=== PATIENT | female | born 1955 | race Caucasian/White ===

== ENCOUNTER 2016-04-07 14:13 | Outpatient (RCR) | payer MEDICARE, MEDICAID ==
--- OUTSIDE RECORDS SUMMARY | 2016-01-20 16:02 | XMS REPORT | Continuity of Care Document ---
Author Author [facility] Organization [facility] Address Unknown Phone Unavailable Care Team Providers Care Loader Helper Sorting Yard Name Role Phone PCP Unavailable Source Comments Some departments are not documenting in the electronic medical record. If you do not see the information that you expected, contact Release of Information in the Health Information Management department at [phone] for further assistance in locating additional records.[facility] Active Allergies and Adverse Reactions No Known Allergies Current Medications Prescription Sig. Disp. Refills Start End Date Status Date MULTIVITAMIN PO Take by mouth. Active CALCIUM CARBONATE/VITAMIN Take by mouth. Active D2 (CALCIUM + VITAMIN D PO) Active Problems Not on file Social History Tobacco Use Types Packs/Day Years Used Date Current Every Day Smoker Cigarettes 0.5 20 Last Filed Vital Signs Vital Sign Reading Time Taken Blood Pressure 124/80 02/04/2011 1:43 PM CDT Pulse 94 02/04/2011 1:43 PM CDT Temperature 36.7 C (98.1 F) 02/04/2011 1:43 PM CDT Respiratory Rate 18 02/04/2011 1:43 PM CDT Height 1.626 m (5' 4") 02/04/2011 1:43 PM CDT Weight 81.647 kg (180 lb) 02/04/2011 1:43 PM CDT Body Mass Index 30.88 02/04/2011 1:43 PM CDT Oxygen Saturation - - Plan of Care Health Maintenance Due Date Last Done Comments Physical (Comprehensive) 1964 Exam Pertussis Vaccine 1968 Tetanus Vaccine 1974 Cervical Cancer Screening 1978 Breast Cancer Screening 1997 Colorectal Cancer 01/01/2008 Screening Influenza Vaccine 12/05/2015 Results from Last 3 Months Not on file
[~2016-04-07 14:13] MED LIST: AZIT-21 PO; CALC-794 PO; CPR500T PO; DEXL30CA2 PO; ESOM10SU PO; EXEM25TA4 PO; HYDR-2890 PO; LETR2.5T4 PO; MULT-608; PANT40TA2 PO; PNT40TEC PO; SUCR1TAB23 PO; SUCR1TAB36 PO; TRAM-21 PO
== END 2016-04-19 | disposition home or self-care (01) ==
LOC: ONC 14:13
PROVIDERS: ATTEND Internal Medicine Hematology & Oncology
DX: C50.911 Malignant neoplasm of unspecified site of right female breast (principal); C77.3 Secondary and unspecified malignant neoplasm of axilla and upper limb lymph nodes; Z90.10 Acquired absence of unspecified breast and nipple; Z17.0 Estrogen receptor positive status [ER+]; Z92.3 Personal history of irradiation; Z92.21 Personal history of antineoplastic chemotherapy; Z45.2 Encounter for adjustment and management of vascular access device
CPT/HCPCS: 96523

== ENCOUNTER 2016-05-13 16:19 | Outpatient (RCR) | payer MEDICARE, MEDICAID ==
--- OUTSIDE RECORDS SUMMARY | 2016-05-13 16:23 | XMS REPORT | Continuity of Care Document ---
Author Author [facility] Organization [facility] Address Unknown Phone Unavailable Care Team Providers Care Derrick Boat Captain Name Role Phone PCP Unavailable Source Comments Some departments are not documenting in the electronic medical record. If you do not see the information that you expected, contact Release of Information in the Health Information Management department at [phone] for further assistance in locating additional records.[facility] Active Allergies and Adverse Reactions [...]
== END 2016-08-11 | disposition home or self-care (01) ==
LOC: ONC 16:19
PROVIDERS: ATTEND Internal Medicine Hematology & Oncology
DX: C50.911 Malignant neoplasm of unspecified site of right female breast (principal); C77.3 Secondary and unspecified malignant neoplasm of axilla and upper limb lymph nodes; Z90.10 Acquired absence of unspecified breast and nipple; Z17.0 Estrogen receptor positive status [ER+]; Z92.3 Personal history of irradiation; Z92.21 Personal history of antineoplastic chemotherapy; Z45.2 Encounter for adjustment and management of vascular access device
CPT/HCPCS: 96523

== ENCOUNTER 2016-12-02 11:41 | Outpatient (RCR) | payer MEDICARE, MEDICAID ==
[2016-10-19 10:16] LABS: BASOPHILS % (AUTO) 0 % (0-10); EOSINOPHILS # (AUTO) 0.1 10^3/uL (0.0-0.3); EOSINOPHILS % (AUTO) 2 % (0-10); LYMPHOCYTES # (AUTO) 1.3 X 10^3 (1.0-4.0); LYMPHOCYTES % (AUTO) 26 % (12-44); MEAN CORPUSCULAR HEMOGLOBIN 30 PG (25-34); MEAN CORPUSCULAR HGB CONC 34 G/DL (32-36); MEAN CORPUSCULAR VOLUME 88 FL (80-99); MEAN PLATELET VOLUME 8.8 FL (7.4-10.4); MONOCYTES # (AUTO) 0.4 X 10^3 (0.0-1.0); MONOCYTES % (AUTO) 8 % (0-12); NEUTROPHILS # (AUTO) 3.2 X 10^3 (1.8-7.8); NEUTROPHILS % (AUTO) 64 % (42-75); PLATELET COUNT 264 10^3/uL (130-400); RED BLOOD COUNT 4.53 10^6/uL (4.35-5.85); RED CELL DISTRIBUTION WIDTH 12.7 % (10.0-14.5); WHITE BLOOD COUNT 5.1 10^3/uL (4.3-11.0)
[2016-10-19 10:41] LABS: ALANINE AMINOTRANSFERASE 17 U/L (0-55); ALBUMIN 4.1 GM/DL (3.2-4.5); ANION GAP 9 MMOL/L (5-14); ASPARTATE AMINO TRANSFERASE 17 U/L (5-34); BILIRUBIN,TOTAL 0.7 MG/DL (0.1-1.0); BLOOD UREA NITROGEN 8 MG/DL (7-18); BUN/CREATININE RATIO 12; CALCIUM 8.8 MG/DL (8.5-10.1); CARBON DIOXIDE 23 MMOL/L (21-32); CHLORIDE 107 MMOL/L (98-107); CREATININE SERUM 0.69 MG/DL (0.60-1.30); GFR ESTIMATED > 60; GLUCOSE 105 MG/DL (70-105); POTASSIUM 3.8 MMOL/L (3.6-5.0); SODIUM 139 MMOL/L (135-145); TOTAL PROTEIN 6.5 GM/DL (6.4-8.2)
== END 2017-01-02 | disposition home or self-care (01) ==
LOC: ONC 11:41
PROVIDERS: ATTEND Internal Medicine Hematology & Oncology
DX: C50.911 Malignant neoplasm of unspecified site of right female breast (principal); C77.3 Secondary and unspecified malignant neoplasm of axilla and upper limb lymph nodes; Z90.10 Acquired absence of unspecified breast and nipple; Z17.0 Estrogen receptor positive status [ER+]; Z92.3 Personal history of irradiation; Z92.21 Personal history of antineoplastic chemotherapy; Z45.2 Encounter for adjustment and management of vascular access device
CPT/HCPCS: 36591; 80053; 85025; 96523

== ENCOUNTER 2017-04-06 14:29 | Outpatient (RCR) | payer MEDICARE, MEDICAID | END 2017-04-20 | disposition home or self-care (01) | LOC: ONC 14:29 | PROVIDERS: ATTEND Internal Medicine Hematology & Oncology | DX: C50.911 Malignant neoplasm of unspecified site of right female breast (principal); C77.3 Secondary and unspecified malignant neoplasm of axilla and upper limb lymph nodes; Z90.10 Acquired absence of unspecified breast and nipple; Z17.0 Estrogen receptor positive status [ER+]; Z92.3 Personal history of irradiation; Z92.21 Personal history of antineoplastic chemotherapy; Z45.2 Encounter for adjustment and management of vascular access device | CPT/HCPCS: 96523 ==

== ENCOUNTER 2017-06-24 09:18 | Outpatient (RCR) | payer MEDICARE, MEDICAID | END 2017-09-22 | disposition home or self-care (01) | LOC: ONC 09:18 | PROVIDERS: ATTEND Internal Medicine Hematology & Oncology | DX: Z08 Encounter for follow-up examination after completed treatment for malignant neoplasm (principal); Z85.3 Personal history of malignant neoplasm of breast; I89.0 Lymphedema, not elsewhere classified; K21.9 Gastro-esophageal reflux disease without esophagitis; K44.9 Diaphragmatic hernia without obstruction or gangrene; Z45.2 Encounter for adjustment and management of vascular access device; Z90.12 Acquired absence of left breast and nipple; Z92.21 Personal history of antineoplastic chemotherapy; Z92.3 Personal history of irradiation | CPT/HCPCS: 96523 ==

== ENCOUNTER 2017-09-27 12:57 | Outpatient (RCR) | payer MEDICARE, MEDICAID ==
[2017-10-18 09:35] LABS: BASOPHILS % (AUTO) 1 % (0-10); EOSINOPHILS # (AUTO) 0.1 10^3/uL (0.0-0.3); EOSINOPHILS % (AUTO) 1 % (0-10); HEMATOCRIT 39 % (35-52); HEMOGLOBIN 13.7 G/DL (11.5-16.0); LYMPHOCYTES # (AUTO) 1.4 X 10^3 (1.0-4.0); LYMPHOCYTES % (AUTO) 24 % (12-44); MEAN CORPUSCULAR HEMOGLOBIN 31 PG (25-34); MEAN CORPUSCULAR HGB CONC 35 G/DL (32-36); MEAN CORPUSCULAR VOLUME 89 FL (80-99); MEAN PLATELET VOLUME 8.8 FL (7.4-10.4); MONOCYTES # (AUTO) 0.4 X 10^3 (0.0-1.0); MONOCYTES % (AUTO) 7 % (0-12); NEUTROPHILS # (AUTO) 3.9 X 10^3 (1.8-7.8); NEUTROPHILS % (AUTO) 68 % (42-75); PLATELET COUNT 265 10^3/uL (130-400); RED BLOOD COUNT 4.45 10^6/uL (4.35-5.85); RED CELL DISTRIBUTION WIDTH 12.8 % (10.0-14.5); WHITE BLOOD COUNT 5.8 10^3/uL (4.3-11.0)
[2017-10-18 09:57] LABS: ALANINE AMINOTRANSFERASE 10 U/L (0-55); ALBUMIN 4.1 GM/DL (3.2-4.5); ALKALINE PHOSPHATASE 87 U/L (40-136); BILIRUBIN,TOTAL 0.4 MG/DL (0.1-1.0); BUN/CREATININE RATIO 15; CALCIUM 8.9 MG/DL (8.5-10.1); CARBON DIOXIDE 23 MMOL/L (21-32); CHLORIDE 109 MMOL/L (98-107); CREATININE SERUM 0.73 MG/DL (0.60-1.30); GFR ESTIMATED > 60; GLUCOSE 99 MG/DL (70-105); POTASSIUM 4.1 MMOL/L (3.6-5.0); SODIUM 139 MMOL/L (135-145); TOTAL PROTEIN 6.3 GM/DL (6.4-8.2)
== END 2017-10-18 09:18 | disposition home or self-care (01) ==
LOC: ONC 12:57
PROVIDERS: ATTEND Internal Medicine Hematology & Oncology
DX: Z08 Encounter for follow-up examination after completed treatment for malignant neoplasm (principal); Z85.3 Personal history of malignant neoplasm of breast; I89.0 Lymphedema, not elsewhere classified; K21.9 Gastro-esophageal reflux disease without esophagitis; K44.9 Diaphragmatic hernia without obstruction or gangrene; Z45.2 Encounter for adjustment and management of vascular access device; Z90.12 Acquired absence of left breast and nipple; Z92.21 Personal history of antineoplastic chemotherapy; Z92.3 Personal history of irradiation
CPT/HCPCS: 36415; 80053; 85025

== ENCOUNTER 2017-12-02 14:25 | Outpatient (RCR) | payer MEDICARE, MEDICAID | END 2018-01-16 | disposition home or self-care (01) | LOC: ONC 14:25 | PROVIDERS: ATTEND Internal Medicine Hematology & Oncology | DX: Z08 Encounter for follow-up examination after completed treatment for malignant neoplasm (principal); Z85.3 Personal history of malignant neoplasm of breast; I89.0 Lymphedema, not elsewhere classified; E55.9 Vitamin D deficiency, unspecified; M85.80 Other specified disorders of bone density and structure, unspecified site; K21.9 Gastro-esophageal reflux disease without esophagitis; K44.9 Diaphragmatic hernia without obstruction or gangrene; Z45.2 Encounter for adjustment and management of vascular access device; Z90.12 Acquired absence of left breast and nipple; Z92.21 Personal history of antineoplastic chemotherapy; Z92.3 Personal history of irradiation | CPT/HCPCS: 36591; 82306; 96523 ==

== ENCOUNTER 2018-03-03 14:35 | Outpatient (RCR) | payer MEDICARE, MEDICAID | END 2018-04-20 | disposition home or self-care (01) | LOC: ONC 14:35 | PROVIDERS: ATTEND Internal Medicine Hematology & Oncology | DX: Z45.2 Encounter for adjustment and management of vascular access device (principal); Z85.3 Personal history of malignant neoplasm of breast | CPT/HCPCS: 96523 ==

== ENCOUNTER 2018-06-29 11:52 | Outpatient (RCR) | payer MEDICARE, MEDICAID | END 2018-08-24 | disposition home or self-care (01) | LOC: ONC 11:52 | PROVIDERS: ATTEND Internal Medicine Hematology & Oncology | DX: Z08 Encounter for follow-up examination after completed treatment for malignant neoplasm (principal); Z85.3 Personal history of malignant neoplasm of breast; Z45.2 Encounter for adjustment and management of vascular access device | CPT/HCPCS: 96523 ==

== ENCOUNTER → 2018-07-06 | Outpatient (CLI) | payer MEDICARE, MEDICAID ==
[~2018-07-06] MED LIST changes: +BARIUM SUSPENSION 105% (LIQUID POLIBAR PLUS) 240 ML/DOSE PO ONE; +BARIUM SUSPENSION 60% (LIQUID EZ PAQUE) 240 ML DOSE PO ONE
--- NOTE | 2018-07-06 13:28 | Diagnostic Imaging Report ---
INDICATION: Difficulty swallowing. TECHNIQUE: The patient ingested effervescent crystals as well as thin and thick barium and imaging of the esophagus was performed. A total of 1 minute and 32 seconds of fluoroscopy was utilized. FINDINGS: The esophagus has a smooth contour. No mass or stricture is identified. No gastroesophageal reflux or hiatal hernia is demonstrated. IMPRESSION: Unremarkable esophagram. Dictated by: Dictated on workstation # [id number]
== END ==
LOC: RAD 10:11
PROVIDERS: ATTEND Surgery
DX: R13.10 Dysphagia, unspecified (principal)
CPT/HCPCS: 74220

== ENCOUNTER 2019-01-11 14:45 | Outpatient (RCR) | payer MEDICARE, MEDICAID ==
[2018-11-15 10:05] LABS: BASOPHILS % (AUTO) 1 % (0-10); EOSINOPHILS # (AUTO) 0.1 10^3/uL (0.0-0.3); EOSINOPHILS % (AUTO) 1 % (0-10); HEMATOCRIT 40 % (35-52); HEMOGLOBIN 13.4 G/DL (11.5-16.0); LYMPHOCYTES # (AUTO) 1.4 X 10^3 (1.0-4.0); LYMPHOCYTES % (AUTO) 22 % (12-44); MEAN CORPUSCULAR HEMOGLOBIN 30 PG (25-34); MEAN CORPUSCULAR HGB CONC 34 G/DL (32-36); MEAN CORPUSCULAR VOLUME 89 FL (80-99); MEAN PLATELET VOLUME 8.8 FL (7.4-10.4); MONOCYTES # (AUTO) 0.5 X 10^3 (0.0-1.0); MONOCYTES % (AUTO) 8 % (0-12); NEUTROPHILS # (AUTO) 4.4 X 10^3 (1.8-7.8); NEUTROPHILS % (AUTO) 68 % (42-75); PLATELET COUNT 263 10^3/uL (130-400); RED CELL DISTRIBUTION WIDTH 12.7 % (10.0-14.5); WHITE BLOOD COUNT 6.5 10^3/uL (4.3-11.0)
[2018-11-15 10:26] LABS: ALANINE AMINOTRANSFERASE 18 U/L (0-55); ALBUMIN 4.3 GM/DL (3.2-4.5); ALKALINE PHOSPHATASE 114 U/L (40-136); BILIRUBIN,TOTAL 0.7 MG/DL (0.1-1.0); BUN/CREATININE RATIO 17; CALCIUM 9.2 MG/DL (8.5-10.1); CARBON DIOXIDE 24 MMOL/L (21-32); CHLORIDE 107 MMOL/L (98-107); CREATININE SERUM 0.72 MG/DL (0.60-1.30); GFR ESTIMATED > 60; GLUCOSE 97 MG/DL (70-105); POTASSIUM 3.8 MMOL/L (3.6-5.0); SODIUM 141 MMOL/L (135-145); TOTAL PROTEIN 6.8 GM/DL (6.4-8.2)
[~2019-01-11 14:45] MED LIST changes: -BARIUM SUSPENSION 105% (LIQUID POLIBAR PLUS) 240 ML/DOSE PO ONE; -BARIUM SUSPENSION 60% (LIQUID EZ PAQUE) 240 ML DOSE PO ONE
== END 2019-02-13 | disposition home or self-care (01) ==
LOC: ONC 14:45
PROVIDERS: ATTEND Internal Medicine Hematology & Oncology
DX: Z08 Encounter for follow-up examination after completed treatment for malignant neoplasm (principal); Z85.3 Personal history of malignant neoplasm of breast
CPT/HCPCS: 36415; 80053; 82306; 85025; 96523

== ENCOUNTER 2019-03-23 14:29 | Outpatient (RCR) | payer MEDICARE, MEDICAID | END 2019-05-17 | disposition home or self-care (01) | LOC: ONC 14:29 | PROVIDERS: ATTEND Internal Medicine Hematology & Oncology | DX: Z08 Encounter for follow-up examination after completed treatment for malignant neoplasm (principal); Z45.2 Encounter for adjustment and management of vascular access device; Z85.3 Personal history of malignant neoplasm of breast | CPT/HCPCS: 96523 ==

== ENCOUNTER 2019-06-08 16:44 | Outpatient (RCR) | payer MEDICARE, MEDICAID | END 2019-09-06 | disposition home or self-care (01) | LOC: ONC 16:44 | PROVIDERS: ATTEND Internal Medicine Hematology & Oncology | DX: Z45.2 Encounter for adjustment and management of vascular access device (principal); Z08 Encounter for follow-up examination after completed treatment for malignant neoplasm; Z85.3 Personal history of malignant neoplasm of breast | CPT/HCPCS: 96523 ==

== ENCOUNTER 2019-11-28 09:08 | Outpatient (RCR) | payer MEDICARE, MEDICAID ==
[2019-11-28 09:32] LABS: BASOPHILS # (AUTO) 0.1 10^3/uL (0.0-0.1); BASOPHILS % (AUTO) 1 % (0-10); EOSINOPHILS # (AUTO) 0.1 10^3/uL (0.0-0.3); EOSINOPHILS % (AUTO) 2 % (0-10); HEMATOCRIT 40 % (35-52); HEMOGLOBIN 13.2 G/DL (11.5-16.0); LYMPHOCYTES # (AUTO) 1.4 X 10^3 (1.0-4.0); LYMPHOCYTES % (AUTO) 24 % (12-44); MEAN CORPUSCULAR HEMOGLOBIN 30 PG (25-34); MEAN CORPUSCULAR HGB CONC 33 G/DL (32-36); MEAN CORPUSCULAR VOLUME 90 FL (80-99); MEAN PLATELET VOLUME 8.8 FL (7.4-10.4); MONOCYTES # (AUTO) 0.4 X 10^3 (0.0-1.0); MONOCYTES % (AUTO) 7 % (0-12); NEUTROPHILS # (AUTO) 3.9 X 10^3 (1.8-7.8); NEUTROPHILS % (AUTO) 66 % (42-75); PLATELET COUNT 256 10^3/uL (130-400); WHITE BLOOD COUNT 5.9 10^3/uL (4.3-11.0)
[2019-11-28 09:53] LABS: ALANINE AMINOTRANSFERASE 14 U/L (0-55); ALBUMIN 4.1 GM/DL (3.2-4.5); ALKALINE PHOSPHATASE 89 U/L (40-136); BILIRUBIN,TOTAL 0.4 MG/DL (0.1-1.0); BUN/CREATININE RATIO 14; CALCIUM 8.4 MG/DL (8.5-10.1); CARBON DIOXIDE 22 MMOL/L (21-32); CHLORIDE 108 MMOL/L (98-107); CREATININE SERUM 0.77 MG/DL (0.60-1.30); GFR ESTIMATED > 60; GLUCOSE 125 MG/DL (70-105); POTASSIUM 3.9 MMOL/L (3.6-5.0); SODIUM 140 MMOL/L (135-145); TOTAL PROTEIN 6.6 GM/DL (6.4-8.2)
== END 2019-12-20 | disposition home or self-care (01) ==
LOC: ONC 09:08
PROVIDERS: ATTEND Internal Medicine Hematology & Oncology
DX: C50.919 Malignant neoplasm of unspecified site of unspecified female breast (principal); M85.80 Other specified disorders of bone density and structure, unspecified site; K21.9 Gastro-esophageal reflux disease without esophagitis; Z85.3 Personal history of malignant neoplasm of breast; Z45.2 Encounter for adjustment and management of vascular access device
CPT/HCPCS: 36591; 80053; 85025; 96523

== ENCOUNTER → 2019-12-26 | Outpatient (CLI) | payer MEDICARE, MEDICAID ==
[~2019-12-26] MED LIST changes: +CALC-654 PO; +CHOL200059 PO; +MV-M1TAB57 PO; +PANT40TA52 PO
--- NOTE | 2019-12-26 10:16 | Diagnostic Imaging Report ---
CLINICAL INDICATION: Patient with abdominal pain and history of breast cancer. EXAM: Right upper quadrant ultrasound. COMPARISON: None. FINDINGS: Patient body habitus and overlying bowel gas obscure portions of this exam. Portions of the pancreatic tail are obscured and unable to be visualized. Otherwise, the visualized portions of the pancreas are unremarkable. The visualized portions of the abdominal aorta and IVC are grossly unremarkable. The midportion of the abdominal aorta is obscured by overlying bowel gas. The liver has normal echogenicity and echotexture. The liver surface is smooth. The liver measures 17.4 cm. There is no liver mass seen. The main portal vein demonstrates hepatopetal flow. There is no intrahepatic or extrahepatic ductal dilation. The common bile duct measures 4 mm. The gallbladder is mild to moderately fluid filled and unremarkable. There is no stone or sludge. There is no significant gallbladder wall thickening. There is no pericholecystic fluid. There is no sonographic Mo sign. There is a roughly 2.4 cm x 2.3 cm x 2.2 cm heterogeneous partially exophytic appearing area involving the mid to upper aspect of the right kidney which demonstrates some Doppler flow. The remainder of the right kidney is unremarkable. There is no hydronephrosis. The right kidney measures 10.9 cm in craniocaudal dimension. There is no abdominal ascites. IMPRESSION: 1. There is a 2.4 cm heterogeneous partially exophytic mass-like lesion involving the mid to upper aspect of the left kidney which demonstrates some Doppler flow. A CT scan of the kidneys with and without IV contrast is suggested to better evaluate for neoplasm versus other abnormality. 2. Portions of the pancreas are obscured but unremarkable as visualized. 3. The gallbladder is unremarkable. Dictated by: Dictated on workstation # [id number]
== END ==
LOC: RAD 07:57
PROVIDERS: ATTEND Surgery
DX: N28.89 Other specified disorders of kidney and ureter (principal); R10.13 Epigastric pain; R19.4 Change in bowel habit
CPT/HCPCS: 76705

== ENCOUNTER 2019-12-28 05:38 | Outpatient (RCR) | payer MEDICARE, MEDICAID ==
[~2019-12-28] VITALS: Ht 167.7 cm; Wt 82.7 kg
== END 2019-12-28 09:40 | disposition home or self-care (01) ==
LOC: PREOP 05:38
PROVIDERS: ATTEND Surgery
DX: Z01.812 Encounter for preprocedural laboratory examination (principal); Z20.828 Contact with and (suspected) exposure to other viral communicable diseases
CPT/HCPCS: 87635

== ENCOUNTER → 2020-01-01 | Outpatient (CLI) | payer MEDICARE, MEDICAID ==
[~2020-01-01] MED LIST changes: +CATHETER FLUSH 10 ML SYR IV PRN
--- NOTE | 2020-01-01 13:08 | Diagnostic Imaging Report ---
Hepatobiliary scan with ejection fraction. INDICATION: Abdominal pain This study was performed following administration of 5.16 mCi of Choletec. One can of Ensure was also utilized for the ejection fraction calculation. There are no prior hepatobiliary scans available for comparison. The gallbladder ultrasound exam performed on 12/26/2019 failed to show any abnormality of the gallbladder. There was a 2.4 cm heterogeneous partially exophytic masslike lesion involving the left kidney. CT was recommended for further evaluation. On this exam there is delayed uptake of the radiotracer by the gallbladder. Normally the radiotracer is seen within the gallbladder by 30 minutes. On this exam however there is no clear evidence that accumulation reaches within the gallbladder until almost 50 minutes. This delayed uptake does suggest there may be an element of chronic cholecystitis present. There was extension of the radiotracer into the small bowel indicating the common bile duct is not obstructed. The ejection fraction had to be calculated manually due to small bowel activity. The ejection fraction is estimated 8% (normal greater than 35%). The reason for the diminished ejection fraction is not certain but the possibility of biliary dyskinesia should certainly be considered. IMPRESSION: 1. The delayed uptake of the radiotracer by the gallbladder does suggest there is an element of chronic cholecystitis present. The ejection fraction is also well below normal limits. 2. There is no evidence of obstruction of the common bile duct. Dictated by: Dictated on workstation # [id number]
== END ==
LOC: CARD 09:52
PROVIDERS: ATTEND Surgery
DX: R10.13 Epigastric pain (principal); R19.4 Change in bowel habit; Z20.828 Contact with and (suspected) exposure to other viral communicable diseases
CPT/HCPCS: 78227; A9537

== ENCOUNTER 2020-01-02 06:53 | Day surgery (SDC) | payer MEDICARE, MEDICAID ==
[~2020-01-02] VITALS: Ht 167.7 cm; Wt 82.7 kg
[~2020-01-02 06:53] MED LIST changes: -CATHETER FLUSH 10 ML SYR IV PRN
[2020-01-02] MEDS ORDERED: MIDAZOLAM 2 MG/2 ML (VERSED) VIAL ONE (07:03)
[2020-01-02] MEDS ORDERED: PROPOFOL INJECTION 50 ML IV ONE (07:03)
[2020-01-02] MEDS ORDERED: LACTATED RINGERS 1,000 ML IV ONE (07:08)
[2020-01-02] MEDS ORDERED: LACTATED RINGERS 1,000 ML IV STA (07:09)
[2020-01-02] MEDS ORDERED: HURRICAINE EXT TUBE (BENZOCAINE) XX PRN (07:15)
[2020-01-02 07:24] VITALS: BP 123/89
[2020-01-02] MEDS ORDERED: HURRICAINE EXT TUBE (BENZOCAINE) ONE (07:46)
--- NOTE | 2020-01-02 08:10 | Progress Note-Pre Operative ---
Pre-Operative Progress Note H&P Reviewed The H&P was reviewed, patient examined and no changes noted. Date Seen by Provider: Jan 02, 2020 Time Seen by Provider: 08:09 Date H&P Reviewed: Jan 02, 2020 Time H&P Reviewed: 08:09 Pre-Operative Diagnosis: epigastric abd pain, hx polyps, change in bowel habits KADEEM WILKS DO Jan 02, 2020 08:10
[2020-01-02] MEDS ORDERED: proPOfol 200 MG/20 ML (DIPRIVAN) VIAL IV ONE (08:30)
[2020-01-02 08:55] VITALS: BP 121/74
[2020-01-02 09:00] VITALS: BP_SYST 111; BP_SYST 123; BP_DIAS 78; BP_DIAS 91
--- NOTE | 2020-01-02 09:01 | Anesthesia-General Post-Op ---
MAC Patient Condition Mental Status/LOC: Same as Preop Cardiovascular: Satisfactory Nausea/Vomiting: Absent Respiratory: Satisfactory Pain: Controlled Complications: Absent Post Op Complications Complications None Follow Up Care/Instructions Patient Instructions None needed. Anesthesiology Discharge Order Discharge Order Patient is doing well, no complaints, stable vital signs, no apparent adverse anesthesia problems. No complications reported per nursing. CELESTE CRUMP CRNA Jan 02, 2020 09:01
--- NOTE | 2020-01-02 09:09 | Progress Note-Post Operative ---
Post-Operative Progess Note Surgeon (s)/Truck And Transport Mechanic (s) Surgeon KADEEM WILKS DO Truck And Transport Mechanic: na Pre-Operative Diagnosis epigastric abd pain, hx polyps, change in bowel habits Post-Operative Diagnosis hiatal hernia reflux esophagitis colon polyps Procedure & Operative Findings Date of Procedure 01/02/20 Procedure Performed/Findings EGD c biopsies colonoscopy c hot biopsy polypectomy x3, snare polypectomy x2 Anesthesia Type per BUTTON CUTTING MACHINE OPERATOR Estimated Blood Loss Estimated blood loss (mL): none Specimens/Packing Specimens Removed cecal polyp x1, ascending polyp x2, antral biopsy x1, GEJ biopsy x2, descending colon polyp x2 (snare), sigmoid polyp x2 (snare) KADEEM WILKS DO Jan 02, 2020 09:09
[2020-01-02] MEDS ORDERED: SUCR1TAB36 PO (09:13)
--- NOTE | 2020-01-02 09:13 | Discharge Inst-Simple/Standard ---
Discharge Inst-Standard Discharge Medications New, Converted or Re-Newed RX: Transmitted to Pharmacy Patient Instructions/Follow Up Plan of Care/Instructions/FU: 2 weeks Pat Activity as Tolerated: Yes Discharge Diet: Regular Diet KADEEM WILKS DO Jan 02, 2020 09:13
[2020-01-02 09:30] VITALS: BP 131/79
--- NOTE | 2020-01-02 09:31 | OPERATIVE REPORT ---
DATE OF SERVICE: 01/02/2020 PREOPERATIVE DIAGNOSES: Epigastric abdominal pain, history of polyps and change in bowel habits. POSTOPERATIVE DIAGNOSES: Hiatal hernia, reflux esophagitis and colon polyps. PROCEDURES PERFORMED: EGD with biopsies, colonoscopy with hot biopsy polypectomy x3 and snare polypectomy x2. SURGEON: Kadeem Stewart DO. ANESTHESIA: Per OFFSET PROOF PRESS OPERATOR. ESTIMATED BLOOD LOSS: None. COMPLICATIONS: None. SPECIMENS: Cecal polyp x1 and ascending colon polyp x2. Antral biopsy and GE junction biopsy x2, descending colon polyps x1 and sigmoid polyp x1. INDICATIONS FOR PROCEDURE: The patient is a 64-year-old female with recent epigastric abdominal pain and bloating symptoms. She is having slight change in bowel habits and she has a history of colon polyps. She understands the risks and benefits of the procedure and wished to proceed with the procedure. Consent was signed in the chart. DESCRIPTION OF PROCEDURE: The patient was taken to the endoscopy suite and placed in a left lateral recumbent position. Timeout was performed. Scope was inserted in the mouth, down the esophagus, stomach and into the duodenum without difficulty. No polyps, masses or ulcerations. Scope was slowly retracted back into the stomach, where it was further insufflated. No polyps, masses or ulcerations. Biopsy of the antrum was obtained. Scope was retroflexed noting a hiatal hernia and no other pathology. Scope was returned to its normal position, slowly withdrawn to the distal esophagus, which had changes of reflux esophagitis. Biopsy of the GE junction was obtained. Scope was then slowly retracted back noting no other pathology. Digital rectal exam was performed. No palpable polyps, masses or ulcerations. Scope was inserted in the rectum, advanced all the way to cecum with minimal difficulty. Prep was adequate. In the cecum, a larger polyp was present, which hot biopsy polypectomy was performed. Scope was then slowly retracted back and in the descending colon, there were two polyps, which hot biopsy polypectomy was performed. Scope was then continued slowly retracted back. No polyps, masses or ulcerations within the remainder of the ascending, transverse colon. In the descending colon, a larger polyp was present, which was snared pieces. This was obtained for specimen. Scope was then continuously retracted back. In the sigmoid colon, another polyp was present, which snare polypectomy was performed and obtained for specimen. No other polyps, masses or ulcerations. Scope was then slowly retracted back into the rectum, where it was also retroflexed noting no other pathology. Scope was returned to its normal position and slowly withdrawn until completely removed. The patient tolerated the procedure well without any complications. She was taken to the recovery room in a stable condition. RECOMMENDATIONS: The patient to continue on Protonix. We will add Carafate 1 gram four times a day. We will have her follow up in two weeks to discuss how symptoms are doing. The patient will need a repeat colonoscopy in one year due to larger polyp and multiple polyps. Job ID: [id number] DocumentID: [id number] Dictated Date: 01/02/2020 09:16:59 Cell Attendant Helper Date: 01/02/2020 09:30:34 Dictated By: KADEEM STEWART DO
[2020-01-02 09:49] VITALS: BP 131/79
== END 2020-01-02 09:48 | disposition home or self-care (01) ==
LOC: ENDO 06:53
PROVIDERS: ATTEND Surgery
DX: D12.0 Benign neoplasm of cecum (principal); D12.2 Benign neoplasm of ascending colon; D12.4 Benign neoplasm of descending colon; K51.40 Inflammatory polyps of colon without complications; K21.0 Gastro-esophageal reflux disease with esophagitis; K44.9 Diaphragmatic hernia without obstruction or gangrene; E55.9 Vitamin D deficiency, unspecified; M85.80 Other specified disorders of bone density and structure, unspecified site; G47.33 Obstructive sleep apnea (adult) (pediatric); F17.210 Nicotine dependence, cigarettes, uncomplicated; Z86.010 Personal history of colon polyps; Z85.3 Personal history of malignant neoplasm of breast; Z99.89 Dependence on other enabling machines and devices; Z90.13 Acquired absence of bilateral breasts and nipples

== ENCOUNTER → 2020-01-23 | Outpatient (CLI) | payer MEDICARE, MEDICAID ==
[~2020-01-23] MED LIST changes: +CATHETER FLUSH 10 ML SYR IV PRN; +HOLD METFORMIN - RECEIVED CONTRAST 20 ML VIAL IV SCH; +IOHEXOL 350 MG/ML 100 ML (OMNIPAQUE 350) VIAL IV ONE; +NS 100 ML (IVPB) BAG IV ONE
[2020-01-23 09:36] LABS: BUN/CREATININE RATIO 17; CREATININE SERUM 0.72 MG/DL (0.60-1.30); GFR ESTIMATED > 60
--- NOTE | 2020-01-23 10:57 | Diagnostic Imaging Report ---
PROCEDURE: CT of the abdomen with and without contrast and CT of the pelvis with contrast. TECHNIQUE: Precontrast acquisitions were acquired through the abdomen. Multiple contiguous axial images were obtained through the abdomen and pelvis after administration of intravenous contrast. Auto Exposure Controls were utilized during the CT exam to meet ALARA standards for radiation dose reduction. INDICATION: Left renal mass. COMPARISON: There are no prior CT abdomen/pelvis examinations available for comparison. The PET/CT exam performed on 05/09/2018 failed to show any sign of a renal mass. FINDINGS: On this exam, there is no evidence for a solid renal mass. Both kidneys do show uptake and excretion of the contrast and there is no sign of obstruction of either collecting system. There does appear to be a small 4.4 mm cyst in the left kidney. There is also a minute 1-2 mm nonobstructive calculus within the right kidney. The liver is prominent but unchanged when compared to the prior PET/CT exam. There is no focal mass involving the liver but there does appear to be a small 7.8 mm cyst in the left lobe of the liver. This appears to have been present on the prior PET/CT exam. The spleen is prominent but within normal limits. The pancreas, adrenals, gallbladder, aorta, and inferior vena cava show no sign of an acute abnormality. The stomach is not well-distended and consequently difficult to assess. There is no pelvic mass or free fluid collection evident. The uterus and urinary bladder are grossly unremarkable. The appendix is not particularly well visualized but there are no indirect signs of acute appendicitis. The bone windows are unremarkable for a fracture or destructive lesion. The lung bases are clear. IMPRESSION: 1. There is no evidence for a solid renal mass. There is no acute abnormality of either kidney either. 2. There is no acute abnormality of the abdomen or pelvis. 3. There is no sign of metastatic disease related to the patient's diagnosis of breast cancer either. Dictated by: Dictated on workstation # [id number]
== END ==
LOC: LAB FS 08:55
PROVIDERS: ATTEND Surgery
DX: N28.9 Disorder of kidney and ureter, unspecified (principal); C50.919 Malignant neoplasm of unspecified site of unspecified female breast
CPT/HCPCS: 36415; 74178; 82565; 84520

== ENCOUNTER 2020-02-01 05:44 | Outpatient (RCR) | payer MEDICARE, MEDICAID ==
[~2020-02-01] VITALS: Ht 167.7 cm; Wt 82.7 kg
[~2020-02-01 05:44] MED LIST changes: -CATHETER FLUSH 10 ML SYR IV PRN; -HOLD METFORMIN - RECEIVED CONTRAST 20 ML VIAL IV SCH; -IOHEXOL 350 MG/ML 100 ML (OMNIPAQUE 350) VIAL IV ONE; -NS 100 ML (IVPB) BAG IV ONE
== END 2020-02-01 14:21 | disposition home or self-care (01) ==
LOC: PREOP 05:44
PROVIDERS: ATTEND Surgery
DX: Z01.818 Encounter for other preprocedural examination (principal)

== ENCOUNTER → 2020-02-05 | Outpatient (CLI) | payer MEDICARE, MEDICAID | LOC: LAB FS 10:00 | PROVIDERS: ATTEND Surgery | DX: Z01.812 Encounter for preprocedural laboratory examination (principal); Z20.828 Contact with and (suspected) exposure to other viral communicable diseases | CPT/HCPCS: 87635 ==

== ENCOUNTER 2020-02-08 06:39 | Day surgery (SDC) | payer MEDICARE, MEDICAID ==
[2020-02-08] VITALS (11 sets, daily range): BP systolic 106–150; BP diastolic 53–88
[~2020-02-08] VITALS: Ht 167.7 cm; Wt 82.7 kg
[2020-02-08] MEDS ORDERED: proPOfol 200 MG/20 ML (DIPRIVAN) VIAL IV ONE (07:04)
[2020-02-08] MEDS ORDERED: ONDANSETRON 4 MG/2 ML (SDV) Z0FRAN ONE ×2 (07:04→09:39)
[2020-02-08] MEDS ORDERED: ROCURONIUM 10 MG/ML 5 ML SYRINGE IV ONE (07:04)
[2020-02-08] MEDS ORDERED: LIDOCAINE PF 2% 5 ML (XYLOCAINE) VIAL ONE (07:04)
[2020-02-08] MEDS ORDERED: SEVOFLURANE (ULTANE) 15 ML INHAL SOLN ONE ×4 (07:05→09:20)
[2020-02-08] MEDS ORDERED: MIDAZOLAM 2 MG/2 ML (VERSED) VIAL ONE (07:05)
[2020-02-08] MEDS ORDERED: fentaNYL INJECTION 100 MCG/2 ML AMP ONE (07:05)
[2020-02-08] MEDS ORDERED: LIDOCAINE/EPI 1%-1:100,000 (XYLOCAINE) 20ML ONE ×2 (07:21→08:22)
[2020-02-08] MEDS ORDERED: ceFAZolin 2 GM IV Premixed 50 ML IV ONE (07:30)
[2020-02-08] MEDS: LACTATED RINGERS 1,000 ML IV PRN ×2 (07:30→08:51)
[2020-02-08 07:37] LABS: BASOPHILS % (AUTO) 1 % (0-10); EOSINOPHILS # (AUTO) 0.1 10^3/uL (0.0-0.3); EOSINOPHILS % (AUTO) 1 % (0-10); HEMATOCRIT 42 % (35-52); HEMOGLOBIN 13.7 g/dL (11.5-16.0); LYMPHOCYTES # (AUTO) 1.6 10^3/uL (1.0-4.0); LYMPHOCYTES % (AUTO) 23 % (12-44); MEAN CORPUSCULAR HEMOGLOBIN 30 pg (25-34); MEAN CORPUSCULAR HGB CONC 32 g/dL (32-36); MEAN CORPUSCULAR VOLUME 91 fL (80-99); MONOCYTES # (AUTO) 0.5 10^3/uL (0.0-1.0); MONOCYTES % (AUTO) 7 % (0-12); NEUTROPHILS # (AUTO) 4.8 10^3/uL (1.8-7.8); NEUTROPHILS % (AUTO) 67 % (42-75); PLATELET COUNT 259 10^3/uL (130-400); WHITE BLOOD COUNT 7.1 10^3/uL (4.3-11.0)
[2020-02-08] MEDS ORDERED: CATHETER FLUSH 10 ML SYR IV PRN (07:45)
--- NOTE | 2020-02-08 07:51 | Progress Note-Pre Operative ---
Pre-Operative Progress Note H&P Reviewed The H&P was reviewed, patient examined and no changes noted. Date Seen by Provider: Feb 08, 2020 Time Seen by Provider: 07:40 Date H&P Reviewed: Feb 08, 2020 Time H&P Reviewed: 07:40 Pre-Operative Diagnosis: biliary dyskinesia, hx breast cancer KADEEM WILKS DO Feb 08, 2020 07:51
[2020-02-08] MEDS ORDERED: NEOSTIGMINE 3 MG/3 ML VIAL ONE (08:06)
[2020-02-08] MEDS ORDERED: GLYCOPYRROLATE 0.2 MG/ML (ROBINUL) 2 ML VIAL ONE (08:06)
[2020-02-08] MEDS ORDERED: HYDROmorphone 2 MG/ML VIAL (DILAUDID) ONE (08:18)
--- NOTE | 2020-02-08 09:43 | Diagnostic Imaging Report ---
INDICATION: Port removal. TIME OF EXAM: 9:26 AM. COMPARISON: 06/05/2010. FINDINGS: A chest wall port fragment is identified with the tip at the SVC/right atrial junction. The fragment appears to be approximately 12 to 14 cm long. The ET tube has its tip above the [place]. There is parenchymal consolidation with air bronchograms in the left lower lobe. The right lung is clear. No effusion or pneumothorax is seen. There are surgical clips in the right axilla. IMPRESSION: 1. Port-A-Cath fragment, as described, with the tip at the SVC/right atrial junction. 2. Left basilar consolidation. Dictated by: Dictated on workstation # [id number]
[2020-02-08] MEDS ORDERED: ONDANSETRON 4 MG/2 ML (SDV) Z0FRAN IVP PRN (09:45)
[2020-02-08] MEDS ORDERED: HYDROmorphone 2 MG/ML VIAL (DILAUDID) IV ONE (09:45)
[2020-02-08] MEDS ORDERED: HYDR-4226 PO (12:03)
[2020-02-08] MEDS ORDERED: DOCU-143 PO (12:03)
--- NOTE | 2020-02-08 12:04 | Discharge Inst-Simple/Standard ---
Discharge Inst-Standard Discharge Medications New, Converted or Re-Newed RX: RX on Chart Patient Instructions/Follow Up Plan of Care/Instructions/FU: [address] Guevara Activity as Tolerated: No Discharge Diet: Regular Diet Other Inst to Patient Follow up Appt: Make appointment for 2 weeks. Instructions: No lifting greater than 10 pounds. No strenuous activity. May shower in 24 hours, no tub bath or soaking. Use incentive spirometer at home as directed. No Smoking Skin/Wound Care: You have special glue over incision, it will fall off on it's own. Symptoms to Report: Appetite Changes, Extremity Discoloration, Numbness/Tingling, Swelling Increased, Bleeding Excessive, Eyesight Changes, Pain Increased, Urine Color Change, Constipation(Persistent), Fever over 101 degree F, Pain/Pressure in chest, Urinating Difficulty, Cough Up/Vomit Blood, Heart Beat Irreg/Pounding, Pain/Pressure in jaw, Vaginal Bleeding Increase, Cramps in feet or legs, Lightheadedness, Pain/Pressure in shoulder, Diarrhea(Persistent), Memory Changes Suddenly, Questions/Concerns, Weight gain consecutive days, Dizziness/Fainting, Nausea/Vomiting, Shortness of Breath, Weight gain over 2 pounds. If eyes or skin turn yellow notify physician. If questions or concerns contact your physician Or seek help at emergency department. KADEEM WILKS DO Feb 08, 2020 12:03
[2020-02-08] MEDS ORDERED: HYDROcodone/APAP 5 MG/325 MG (LORTAB) TAB PO ONE (12:15)
[2020-02-08] MEDS ORDERED: HYDROcodone/APAP 5 MG/325 MG (LORTAB) TAB ONE (12:23)
--- NOTE | 2020-02-08 12:47 | Anesthesia-General Post-Op ---
General Patient Condition Mental Status/LOC: Same as Preop Cardiovascular: Satisfactory Nausea/Vomiting: Absent Respiratory: Satisfactory Pain: Controlled Complications: Absent Post Op Complications Complications None Follow Up Care/Instructions Patient Instructions None needed. Anesthesia/Patient Condition Patient Condition Patient is doing well, no complaints, stable vital signs, no apparent adverse anesthesia problems. No complications reported per nursing. D/C home per [facility] Criteria: Yes YASMIN DICKEY BARNWORKER GROOM Feb 08, 2020 12:46
--- NOTE | 2020-02-08 23:40 | OPERATIVE REPORT ---
DATE OF SERVICE: 02/08/2020 PREOPERATIVE DIAGNOSES: Biliary dyskinesia, history of breast cancer. POSTOPERATIVE DIAGNOSES: Biliary dyskinesia, history of breast cancer. PROCEDURE: Laparoscopic cholecystectomy with attempted intraoperative cholangiogram and port removal. SURGEON: Kadeem Stewart DO ICE CRUSHER: Dr. Bridges, assisted in retraction, dissection and closure. ANESTHESIA: General. ESTIMATED BLOOD LOSS: Minimal. COMPLICATIONS: None. INDICATIONS: The patient is a 64-year-old female with symptoms and radiological findings consistent with biliary dyskinesia. She also has a port, which is 10 plus years old. She wishes to have it removed. She understands all risks and benefits of procedures and wished to proceed with procedures. Consent was signed in the chart. DESCRIPTION OF PROCEDURE: The patient was taken to the operating suite. She was prepped and draped in sterile fashion. Surgical pause was performed. Local anesthetic was infiltrated just above the umbilicus. An 11 blade scalpel was used to make a small skin incision and cautery was used to dissect down to the fascia, which was then scored, grasped, elevated and the abdomen was then entered. An 0 Vicryl was placed in a [id number] fashion for closure at the end of the case. Balloon trocar was inserted into the abdomen and pneumoperitoneum was achieved. Under direct visualization of the laparoscope, a 5 mm trocar was placed in subxiphoid region and two 5 mm trocars were placed in the right upper quadrant. Gallbladder was grasped and elevated. There were some adhesions, which were taken down with blunt dissection and cautery. The cystic duct and cystic artery were then dissected out. Clips were placed on the proximal and distal portion of the cystic artery and the distal portion of the cystic duct. The duct was then partially transected. Arrow catheter was attempted to be inserted into the cystic duct; however, this was unable to be inserted, so cholangiogram was not performed. Clips were placed on the proximal portion of the cystic duct and the duct and the artery were then transected. The hook cautery used to dissect the gallbladder from the gallbladder fossa achieving hemostasis. Once removed, it was placed in an Endobag and removed through 12 mm trocar site. The abdomen was then irrigated and suctioned. Hemostasis was achieved. The abdomen was then desufflated, the trocars were removed. The 0 Vicryl was placed at the beginning of the case was then tied closing the fascial defect and the skin was then closed using 4-0 Monocryl in a subcuticular fashion. The area was then washed and dried and Skin Affix was placed over the incisions. The port was then prepped and draped in sterile fashion on the left upper chest. Local anesthetic was infiltrated and a 15 blade scalpel was used to make a small skin incision. Cautery was used to dissect down to the port, which was then able to be freed and brought out through the incision. The catheter appeared to have some small fractures. Therefore, gentle traction was placed and dissection was carefully taken down along the tract until the catheter was under the left clavicle. At this point, gentle traction was placed and the catheter fractured. The catheter was not able to be palpable. At this time, dissection went down to where into the tissues just below the clavicle without being able to visualize the catheter. An x-ray was performed demonstrating a fracture catheter with the tip in the SVC. At this point, the subcutaneous tissues were then reapproximated using 3-0 Vicryl and the skin was then closed with Skin Affix. RECOMMENDATIONS: The patient has been set up to see Dr. Guevara today at 1:00 to discuss retrieval of the broken catheter tip. The patient will follow up in 2 weeks for a postoperative gallbladder. Job ID: [id number] DocumentID: [id number] Dictated Date: 02/08/2020 15:13:17 Marketing Communications Manager Date: 02/08/2020 23:39:47 Dictated By: KADEEM STEWART DO
[2020-02-14] MEDS ORDERED: FLUT9.9S NSEACH (07:52)
[2020-02-14] MEDS ORDERED: ASCO500T71 PO (07:52)
[2020-02-14] MEDS ORDERED: DOCU100C37 PO (07:52)
== END 2020-02-08 12:35 | disposition home or self-care (01) ==
LOC: SDC 06:39
PROVIDERS: ATTEND Surgery
DX: K81.1 Chronic cholecystitis (principal); K82.8 Other specified diseases of gallbladder; G47.33 Obstructive sleep apnea (adult) (pediatric); E55.9 Vitamin D deficiency, unspecified; K44.9 Diaphragmatic hernia without obstruction or gangrene; K21.00 Gastro-esophageal reflux disease with esophagitis, without bleeding; M85.80 Other specified disorders of bone density and structure, unspecified site; K29.70 Gastritis, unspecified, without bleeding; I87.2 Venous insufficiency (chronic) (peripheral); F17.210 Nicotine dependence, cigarettes, uncomplicated; E66.9 Obesity, unspecified; Z68.29 Body mass index [BMI] 29.0-29.9, adult; Z79.899 Other long term (current) drug therapy; Z85.3 Personal history of malignant neoplasm of breast
CPT/HCPCS: 36415; 71045; 85025; 87081; 88304

== ENCOUNTER → 2020-02-14 | Day surgery (SDC) | payer MEDICARE, MEDICAID ==
[~2020-02-14] VITALS: Ht 167 cm; Wt 84.0 kg
[2020-02-14] VITALS (8 sets, daily range): BP systolic 128–150; BP diastolic 75–85
[~2020-02-14] MED LIST changes: +ASCO500T71 PO; +DOCU-143 PO; +DOCU100C37 PO; +FLUT9.9S NSEACH; +HEParin (CATH LAB) 1,000 ML IV ONE; +HYDR-4226 PO; +LIDOCAINE 1% INJ 20 ML 20 ML VIAL ONE; +MIDAZOLAM 5 MG/5 ML (VERSED) VIAL ONE; +NS IV 1000 ML 1,000 ML IV SCH; +NS IV 1000 ML 1,000 ML ONE; +PATIENT MAY USE OWN MEDS, ALL PO SCH; +fentaNYL INJECTION 100 MCG/2 ML AMP ONE
[2020-02-14 07:34] LABS: HEMOGLOBIN 14.2 g/dL (11.5-16.0); MEAN PLATELET VOLUME 9.2 fL (9.0-12.2); WHITE BLOOD COUNT 8.1 10^3/uL (4.3-11.0)
[2020-02-14 07:56] LABS: ALANINE AMINOTRANSFERASE 19 U/L (0-55); ALBUMIN 4.4 GM/DL (3.2-4.5); ALKALINE PHOSPHATASE 113 U/L (40-136); BILIRUBIN,TOTAL 0.5 MG/DL (0.1-1.0); BUN/CREATININE RATIO 17; CALCIUM 9.3 MG/DL (8.5-10.1); CARBON DIOXIDE 21 MMOL/L (21-32); CHLORIDE 105 MMOL/L (98-107); CHOLESTEROL 219 MG/DL (< 200); CREATININE SERUM 0.88 MG/DL (0.60-1.30); GFR ESTIMATED > 60; GLUCOSE 107 MG/DL (70-105); HDL CHOLESTEROL 51 MG/DL (40-60); POTASSIUM 4.1 MMOL/L (3.6-5.0); SODIUM 140 MMOL/L (135-145); TOTAL PROTEIN 7.5 GM/DL (6.4-8.2); TRIGLYCERIDES 131 MG/DL (<150); VLDL CHOLESTEROL 26 MG/DL (5-40)
[2020-02-14 07:59] LABS: INR 0.8 (0.8-1.4); PROTHROMBIN TIME PATIENT 11.8 SEC (12.2-14.7)
--- NOTE | 2020-02-14 08:13 | Diagnostic Imaging Report ---
INDICATION: Preop evaluation COMPARISON: 02/08/2020. Tip of a vascular catheter projects over the lower SVC its fractured or discontiguous at the level of the middle 3rd of the left subclavian vein. ET tube has been removed. The lungs are clear. No effusion or pneumothorax. IMPRESSION: A vascular catheter fragment is in unchanged alignment with the tip distally overlying the mid to lower SVC. Chest otherwise clear and normal at follow-up. Dictated by: Dictated on workstation # [id number]
--- NOTE | 2020-02-14 08:20 | Cardiac Procedure Note-CS/ASA ---
Pre-Procedure Note Pre-Op Procedure Note H&P Reviewed The H&P was reviewed, patient examined and no changes noted. Date H&P Reviewed: Feb 14, 2020 Time H&P Reviewed: 08:20 Conscious Sedation Pre-Proced Time 08:20 ASA Score 3 For ASA 3 and 4: Consider anesthesia and medical clearance. Also, for patients with a history of failed moderate sedation consider anesthesia. Airway Lungs Heart ASA score ASA 1: a normal healthy patient ASA 2: a patient with a mild systemic disease (mid diabetes, controlled hypertension, obesity x ASA 3: a patient with a severe systemic disease that limits activity (angina, COPD, prior Myocardial infarction) ASA 4: a patient with an incapacitating disease that is a constant threat to life (CHF, renal failure) ASA 5: a moribund patient not expected to survive 24 hrs. (ruptured aneurysm) ASA 6: a declared brain- patient whose organs are being harvested. For emergent operations, add the letter E after the classification Mallampati Classification Grade 3 Sedation Plan Analgesia, Amnesia, Plan communicated to team members, Discussed options with patient/fam, Discussed risks with patient/fam The patient is an appropriate candidate to undergo the planned procedure, sedation, and anesthesia. The patient immediately re-assessed prior to indication. RICKY NÚÑEZ MD Feb 14, 2020 08:20
--- NOTE | 2020-02-14 09:04 | Discharge Inst-Post CATH ---
Discharge Inst-CATH/EP Problems Reviewed?: Yes Post Cardiac Cath/EP D/C Inst <b>CARDIAC CATH/EP PROCEDURE DISCHARGE INSTRUCTIONS</b> ACTIVITY * Go Home directly and rest. * Limit activity of the leg (or wrist if it was used) for 7 days including aerobics, swimming, jogging, bicycling, etc. * Restrict stair-climbing for 7 days if possible, if not, climb up with your non-cath leg, then bring together on the same step. * Avoid lifting, pushing, pulling or excessive movement of the affected extremity for 7 days. * Customary sexual activity may be resumed after 2 days-use caution not to use a position that strains or causes pain to the affected extremity. * No driving for 24 hours. * NO SMOKING. * Avoid straining for bowel movements for 7 days. * Gentle walking on level ground is allowed. * Returning to work will depend on the type of procedure and the results. Your doctor will discuss this with you. CALL YOUR DOCTOR FOR ANY OF THE FOLLOWING: *If bleeding from the puncture site occurs- Apply gentle pressure to site with clean cloth and call your doctor or EMS. * If a knot or lump forms under the skin, increases in size, or causes pain. * If bruising appears to be worsening or moving further down your leg instead of disappearing. * Temperature above 101 F. CARE OF YOUR GROIN INCISION; * Bruising or purple discoloration of the skin near the puncture site is common. * You may shower only, no bathtub bathing for 5 days. Be careful to avoid slipping as your leg may feel stiff. * If a closure device was used on your femoral artery, please see the attached guide regarding care of the device and your leg. * Leave dressing on FOR 24 hours. CARE OF YOUR WRIST INCISION; * Bruising or purple discoloration of the skin near the puncture site is common. * You may shower. * DO NOT submerge wrist. * Leave dressing on FOR 24 hours. RICKY NÚÑEZ MD Feb 14, 2020 9:04 am
--- NOTE | 2020-02-14 09:04 | NUR ---
SPOKE WITH THE PT AND CALLED [facility] TO COMPLETE THE MED REC 10-22-2019 PANTOPRAZOLE 40MG #90/90DS (THERE IS A NEW PRESCRIPTION ON HOLD AT THE PHARMACY) 01-04-2020 CARAFATE 1GM #360/90DS OTC MEDS: CALCIUM VIT C VIT D3 MTV FLONASE DOCUSATE
--- NOTE | 2020-02-14 09:08 | Cardiac Procedure Note ---
Cardiology Procedures Date of Procedure 02/14/20 Retrieval of a foreign device: 64-year-old lady with history of breast cancer, had a port that is over 10 years old. Had surgical extraction, portion of the port was stuck in the superior vena cava, I was called for evaluation and patient was scheduled for elective retrieval of the procedure. Next Procedure note After explaining the procedure to the patient on frozen cons were explained AND were answered patient was placed on the cardiac catheterization laboratory local anesthesia applied 7 Estonian sheath was placed in the left femoral vein. I used triloop Ensnare system and I was able to advance it to the superior vena cava around the tip of the catheter then advanced at higher I was able to retract the loop and capture the catheter tried multiple times to pull it and it appeared to be embedded within the wall and stuck at the level of the subclavian vein. After multiple attempts I decided to stop. The catheter remained intact, the system was removed and the sheath was removed and manual pressure applied Conclusion Failed attempt to retrieve portion of a port catheter in the superior vena cava Final diagnosis Breast cancer Fracture of port catheter RICKY NÚÑEZ MD Feb 14, 2020 9:08 am
--- NOTE | 2020-02-14 11:20 | NUR ---
DISCHARGED PER W/C/ TO WAITING PRIVATE CAR, ACCOMPANIED BY RN, TO BE DRIVEN HOME, BY DAUGHTER
== END ==
LOC: CATH 08:00 → SDC 09:29
PROVIDERS: ATTEND Internal Medicine Cardiovascular Disease
DX: T82.514A Breakdown (mechanical) of infusion catheter, initial encounter (principal); I10 Essential (primary) hypertension; E78.5 Hyperlipidemia, unspecified; G47.33 Obstructive sleep apnea (adult) (pediatric); M85.80 Other specified disorders of bone density and structure, unspecified site; K21.00 Gastro-esophageal reflux disease with esophagitis, without bleeding; K44.9 Diaphragmatic hernia without obstruction or gangrene; E66.9 Obesity, unspecified; Z68.30 Body mass index [BMI] 30.0-30.9, adult; Z85.3 Personal history of malignant neoplasm of breast; Z86.010 Personal history of colon polyps; Z90.13 Acquired absence of bilateral breasts and nipples; Z92.21 Personal history of antineoplastic chemotherapy; Z92.3 Personal history of irradiation
CPT/HCPCS: 36010; 37197; 71045; 80053; 80061; 85027; 85610; 85730; 87081; C1773; C1894; 36415

== ENCOUNTER 2020-11-12 09:38 | Outpatient (RCR) | payer MEDICARE, MEDICAID ==
[~2020-11-12 09:38] MED LIST changes: -HEParin (CATH LAB) 1,000 ML IV ONE; -LIDOCAINE 1% INJ 20 ML 20 ML VIAL ONE; -MIDAZOLAM 5 MG/5 ML (VERSED) VIAL ONE; -NS IV 1000 ML 1,000 ML IV SCH; -NS IV 1000 ML 1,000 ML ONE; -PATIENT MAY USE OWN MEDS, ALL PO SCH; -fentaNYL INJECTION 100 MCG/2 ML AMP ONE
[2020-11-12 09:54] LABS: BASOPHILS # (AUTO) 0.1 10^3/uL (0.0-0.1); BASOPHILS % (AUTO) 1 % (0-10); EOSINOPHILS # (AUTO) 0.1 10^3/uL (0.0-0.3); EOSINOPHILS % (AUTO) 1 % (0-10); HEMATOCRIT 42 % (35-52); LYMPHOCYTES # (AUTO) 1.5 10^3/uL (1.0-4.0); LYMPHOCYTES % (AUTO) 22 % (12-44); MEAN CORPUSCULAR HEMOGLOBIN 31 pg (25-34); MEAN CORPUSCULAR HGB CONC 33 g/dL (32-36); MEAN CORPUSCULAR VOLUME 92 fL (80-99); MEAN PLATELET VOLUME 8.8 fL (9.0-12.2); MONOCYTES # (AUTO) 0.5 10^3/uL (0.0-1.0); MONOCYTES % (AUTO) 7 % (0-12); NEUTROPHILS # (AUTO) 4.7 10^3/uL (1.8-7.8); NEUTROPHILS % (AUTO) 68 % (42-75); PLATELET COUNT 240 10^3/uL (130-400); WHITE BLOOD COUNT 6.9 10^3/uL (4.3-11.0)
[2020-11-12 10:14] LABS: ALBUMIN 4.1 GM/DL (3.2-4.5); BILIRUBIN,TOTAL 0.6 MG/DL (0.1-1.0); CALCIUM 9.3 MG/DL (8.5-10.1); CREATININE SERUM 0.82 MG/DL (0.60-1.30); POTASSIUM 4.1 MMOL/L (3.6-5.0); TOTAL PROTEIN 7.1 GM/DL (6.4-8.2)
== END 2021-02-10 | disposition home or self-care (01) ==
LOC: ONC 09:38
PROVIDERS: ATTEND Internal Medicine Hematology & Oncology
DX: C50.911 Malignant neoplasm of unspecified site of right female breast (principal); E55.9 Vitamin D deficiency, unspecified; T82.598A Other mechanical complication of other cardiac and vascular devices and implants, initial encounter; M85.80 Other specified disorders of bone density and structure, unspecified site; K21.9 Gastro-esophageal reflux disease without esophagitis; K44.9 Diaphragmatic hernia without obstruction or gangrene; I89.0 Lymphedema, not elsewhere classified; Z90.13 Acquired absence of bilateral breasts and nipples; Z98.890 Other specified postprocedural states; Z92.3 Personal history of irradiation; Z78.0 Asymptomatic menopausal state
CPT/HCPCS: 80053; 82306; 85025; G0463; 99213

== ENCOUNTER → 2020-11-27 | Outpatient (CLI) | payer MEDICARE, MEDICAID ==
[~2020-11-27] MED LIST changes: +HOLD METFORMIN - RECEIVED CONTRAST 20 ML VIAL IV SCH
[2020-11-27] MEDS: CATHETER FLUSH 10 ML SYR IV PRN (10:04)
[2020-11-27] MEDS: NS 100 ML (IVPB) BAG IV ONE (10:04)
[2020-11-27] MEDS: IOHEXOL 350 MG/ML 100 ML (OMNIPAQUE 350) VIAL IV ONE (10:04)
--- NOTE | 2020-11-27 11:14 | Diagnostic Imaging Report ---
PROCEDURE: CT chest with contrast only. TECHNIQUE: Multiple contiguous axial images were obtained through the chest after administration of intravenous contrast. Auto Exposure Controls were utilized during the CT exam to meet ALARA standards for radiation dose reduction. INDICATION: Unsuccessful attempt at port removal. Correlated with the most recent chest x-ray 02/14/2020 Findings: Appearing identical to the previous correlative radiograph is an approximate 15 cm length segment of catheter tubing with its distal metallic tip at the lower SVC, and its most proximal portion in the left chest at the junction of the middle and medial one thirds of the left subclavian vein. There is no appreciable contrast filling defect peripheral to the distal tip. No vascular obstruction. There is no PE. The aorta is patent and nonaneurysmal. There is coronary artery atherosclerotic vascular calcifications. There is no evidence for pneumonia. No suspicious lung mass. No thoracic adenopathy. No acute chest wall pathology. The visualized upper abdomen was unremarkable. IMPRESSION: Residual catheter tubing extends from the mid subclavian through the lower SVC unchanged in orientation when correlated with the previous chest x-ray. No other foreign body identified no other substantial finding. Dictated by: Dictated on workstation # [id number]
== END ==
LOC: RAD FS 09:32
PROVIDERS: ATTEND Internal Medicine Hematology & Oncology
DX: T82.598A Other mechanical complication of other cardiac and vascular devices and implants, initial encounter (principal); C50.911 Malignant neoplasm of unspecified site of right female breast
CPT/HCPCS: 71260

== ENCOUNTER → 2021-03-17 | Outpatient (CLI) | payer MEDICARE, MEDICAID ==
[~2021-03-17] MED LIST changes: -HOLD METFORMIN - RECEIVED CONTRAST 20 ML VIAL IV SCH
== END ==
LOC: CARD 14:00
PROVIDERS: ATTEND Physician Assistant
DX: I10 Essential (primary) hypertension (principal)
CPT/HCPCS: 93306

== ENCOUNTER → 2021-06-02 | Outpatient (CLI) | payer MEDICARE, MEDICAID ==
[~2021-06-02] VITALS: Ht 162 cm; Wt 81.0 kg
[~2021-06-02] MED LIST changes: +CATHETER FLUSH 10 ML SYR IVP PRN
[2021-06-02 09:07] VITALS: BP 110/77
--- NOTE | 2021-06-02 11:26 | Cardiology Stress Test Report ---
Stress Test Report Date of Procedure/Referring: Date of Procedure: Jun 02, 2021 Dottie Ritchie Admitting Physician Doris Jung Aprn Indications: HTN Baseline Heart Rate: 77 Baseline Blood Pressure: Blood Pressure Systolic: 110 Blood Pressure Diastolic: 77 Vital Signs Date Time Temp Pulse Resp B/P (MAP) Pulse Ox O2 Delivery O2 Flow Rate FiO2 06/02/21 09:07 77 110/77 (88) Baseline Vital Signs Vital Signs Date Time Temp Pulse Resp B/P (MAP) Pulse Ox O2 Delivery O2 Flow Rate FiO2 06/02/21 09:07 77 110/77 (88) Baseline EKG: Baseline EKG: NSR Summary: After explaining the procedure and details to the patient, she signed the consent and was brought to the stress nuclear laboratory. Patient exercised on standard Omari protocol, EKG, heart rate and blood pressure were monitored continuously, resting and stress doses of radio tracer were injected, imaging was acquired and reviewed in the short axis, horizontal long a xis and vertical long axis views Patient was able to exercise for a total of 3 minutes on Omari protocol, METs 4.6 Maximum heart rate 154 Maximum blood pressure 215/78 Stress EKG, Minimal nondiagnostic changes Recovery EKG, Return to baseline TID: 0.97 SSS: 1 SDS: 1 EF: 62 Conclusion: 1. Poor exercise tolerance for a total of 3 minutes on standard Omari protocol, 4.6 METS achieving 98% of maximal expected heart rate 2. Appropriate heart rate response to exercise with severe hypertensive response to exercise with peak blood pressure 215/78 return to baseline during recovery 3. Nondiagnostic EKG changes with exercise return to baseline during recovery 4. No significant ischemia or infarction on SPECT images 5. Normal left ventricular size, EF 62% RICKY NÚÑEZ MD Jun 02, 2021 11:26
== END ==
LOC: CARD 08:00
PROVIDERS: ATTEND Physician Assistant
DX: I10 Essential (primary) hypertension (principal)
CPT/HCPCS: 78452; 93017; A9502

== ENCOUNTER 2022-09-16 06:00 | Outpatient (CLI) | payer MEDICARE, MEDICAID ==
[~2022-09-16] VITALS: Ht 165.1 cm; Wt 84.6 kg
[~2022-09-16 06:00] MED LIST changes: -CATHETER FLUSH 10 ML SYR IVP PRN
[2022-09-17] MEDS ORDERED: ATOR20TA66 PO (07:49)
[2022-09-17] MEDS ORDERED: TRAM50TA3 PO (07:49)
== END 2022-09-17 08:00 | disposition home or self-care (01) ==
LOC: PREOP 06:00
PROVIDERS: ATTEND Surgery
DX: Z01.818 Encounter for other preprocedural examination (principal)

== ENCOUNTER 2022-09-29 11:34 | Day surgery (SDC) | payer MEDICARE, MEDICAID ==
[~2022-09-29] VITALS: Ht 165.1 cm; Wt 84.6 kg
[~2022-09-29 11:34] MED LIST changes: +ATOR20TA66 PO; +TRAM50TA3 PO
[2022-09-29] MEDS ORDERED: LACTATED RINGERS 1,000 ML IV STA (11:38)
[2022-09-29] MEDS ORDERED: LACTATED RINGERS 1,000 ML IV ONE (11:44)
[2022-09-29 12:05] VITALS: BP 122/75
[2022-09-29] MEDS ORDERED: MIDAZOLAM 2 MG/2 ML (VERSED) VIAL ONE (14:20)
[2022-09-29] MEDS ORDERED: PROPOFOL INJECTION 50 ML IV ONE (14:20)
--- NOTE | 2022-09-29 15:09 | Progress Note-Post Operative ---
Post-Operative Progess Note Surgeon (s)/Requirements Engineer (s) Surgeon KADEEM WILKS DO Requirements Engineer: na Pre-Operative Diagnosis hx polyps Post-Operative Diagnosis colon polyps Procedure & Operative Findings Date of Procedure 09/29/22 Procedure Performed/Findings colonoscopy c hot bx polypectomy x 5 Anesthesia Type per manager bank Estimated Blood Loss Estimated blood loss (mL): none Specimens/Packing Specimens Removed polyps of colon KADEEM WILKS DO Sep 29, 2022 15:08
[2022-09-29 15:10] VITALS: BP 126/75
--- NOTE | 2022-09-29 15:12 | Discharge Inst-Simple/Standard ---
Discharge Inst-Standard Patient Instructions/Follow Up Plan of Care/Instructions/FU: 2 weeks surinder Activity as Tolerated: Yes Discharge Diet: Regular Diet KADEEM WILKS DO Sep 29, 2022 15:11
[2022-09-29 15:15] VITALS: BP 136/73
[2022-09-29 15:24] VITALS: BP 136/73
--- NOTE | 2022-09-29 16:26 | Anesthesia-General Post-Op ---
MAC Patient Condition Mental Status/LOC: Same as Preop Cardiovascular: Satisfactory Nausea/Vomiting: Absent Respiratory: Satisfactory Pain: Controlled Complications: Absent Post Op Complications Complications None Follow Up Care/Instructions Patient Instructions None needed. Anesthesiology Discharge Order Discharge Order Patient is doing well, no complaints, stable vital signs, no apparent adverse anesthesia problems. No complications reported per nursing. EMILY LAWTON CRNA Sep 29, 2022 16:26
--- NOTE | 2022-09-29 21:11 | OPERATIVE REPORT ---
DATE OF SERVICE: 09/29/2022 PREOPERATIVE DIAGNOSIS: History of polyps. POSTOPERATIVE DIAGNOSIS: Colon polyps. PROCEDURE: Colonoscopy with hot biopsy polypectomy x5. SURGEON: Kadeem Stewart DO ANESTHESIA: Per HEALTH PROFESSIONAL. ESTIMATED BLOOD LOSS: None. COMPLICATIONS: None. INDICATIONS: The patient is a 66-year-old female with history of polyps. She understands risks and benefits of procedure and wished to proceed. Consent was signed in chart. DESCRIPTION OF PROCEDURE: The patient was taken to endoscopy suite, placed in left lateral recumbent position. Timeout was performed. Digital rectal exam was performed. No palpable polyps, masses or ulcerations. Scope was inserted in the rectum and advanced all the way to the cecum with minimal difficulty. Prep was adequate. Scope was then slowly retracted back. In the cecum and appendiceal orifice, a small polyp was present, which hot biopsy polypectomy was performed. Another polyp just right by this area was present, which hot biopsy polypectomy was performed. Scope was then continuously retracted back into the ascending colon where 2 polyps were present, which hot biopsy polypectomies were performed. Scope was then continuously retracted back. No polyps, masses or ulcerations in the transverse and descending colon. In sigmoid colon, another polyp was present, which hot biopsy polypectomy was performed. Scope was then continuously retracted back into the rectum where it was also retroflexed noting no other pathology. Scope was returned to its normal position, slowly withdrawn until completely removed. The patient tolerated the procedure well without any complications, taken to recovery room in stable condition. RECOMMENDATIONS: The patient will repeat colonoscopy in 5 years. She will follow up on her pathology in 2 weeks. Any problems before that, be seen at that time. Job ID: [id number] DocumentID: [id number] Dictated Date: 09/29/2022 15:14:00 University Teacher Date: 09/29/2022 21:09:00 Dictated By: KADEEM STEWART DO
== END 2022-09-29 15:32 | disposition home or self-care (01) ==
LOC: ENDO 11:34
PROVIDERS: ATTEND Surgery
DX: Z12.11 Encounter for screening for malignant neoplasm of colon (principal); D12.0 Benign neoplasm of cecum; D12.2 Benign neoplasm of ascending colon; K63.5 Polyp of colon; F17.210 Nicotine dependence, cigarettes, uncomplicated; E66.9 Obesity, unspecified; Z85.3 Personal history of malignant neoplasm of breast; G47.33 Obstructive sleep apnea (adult) (pediatric); Z68.31 Body mass index [BMI] 31.0-31.9, adult; Z28.310 Unvaccinated for COVID-19